=== PATIENT | male | born 1970 | race Two or more races ===

== ENCOUNTER 2022-11-20 06:55 | Outpatient (RCR) | payer OTHER, SELFPAY | END 2023-01-01 11:41 | disposition home or self-care (01) | LOC: PT 06:55 | PROVIDERS: PCP Internal Medicine; Visit Provider Anesthesiology Pain Medicine | DX: M47.816 Spondylosis without myelopathy or radiculopathy, lumbar region (principal) | CPT/HCPCS: 97012; 97110; 97112; 97113; 97140 ==

== ENCOUNTER 2023-02-19 15:51 | Outpatient (OUT) | payer OTHER, SELFPAY ==
--- NOTE | 2023-02-19 16:00 | XR_ITS ---
The [address] [address] Patient Name: HARPREET CORREA MRN: [id number] date: 1970 Sex: M Assigned Patient Location: [facility] Current Patient Location: Accession/Order Number: [id number] Exam Date: 02/19/2023 16:02 Report Date: 02/19/2023 22:10 At the request of: BERENICE CYR Procedure: XR lumbar spine 2-3V EXAM: XR thoracic spine 2V, XR lumbar spine 2-3V HISTORY: Lower thoracic back pain M54.6 COMPARISON: None. TECHNIQUE: 2 view thoracic spine and two-view lumbar spine FINDINGS: Thoracic: There are 12 rib-bearing thoracic vertebral bodies. Vertebral body heights and alignment are preserved. Minimal multilevel degenerative disc disease more notable at the lower thoracic levels. No fracture. Imaged lungs are clear. Lumbar: There are 5 nonrib-bearing lumbar-type vertebral bodies. Imaged sacroiliac joints appear intact. Vertebral body heights and alignment are preserved. Multilevel degenerative disc disease which is most notable at L5-S1. Facet arthrosis also most notable at L5-S1. XR/XR lumbar spine 2-3V IMPRESSION: Minimal multilevel degenerative disc disease of the thoracic spine. Multilevel degenerative changes of the lumbar spine most notable at L5-S1. Electronically authenticated by: EDILIA SCHNEIDER Date: 02/19/2023 22:10
--- NOTE | 2023-02-19 16:00 | XR_ITS ---
The [address] [address] Patient Name: HARPREET CORREA MRN: [id number] date: 1970 Sex: M Assigned Patient Location: [facility] Current Patient Location: Accession/Order Number: [id number] Exam Date: 02/19/2023 16:02 Report Date: 02/19/2023 22:10 At the request of: BERENICE CYR Procedure: XR thoracic spine 2V EXAM: XR thoracic spine 2V, XR lumbar spine 2-3V HISTORY: Lower thoracic back pain M54.6 COMPARISON: None. TECHNIQUE: 2 view thoracic spine and two-view lumbar spine FINDINGS: Thoracic: There are 12 rib-bearing thoracic vertebral bodies. Vertebral body heights and alignment are preserved. Minimal multilevel degenerative disc disease more notable at the lower thoracic levels. No fracture. Imaged lungs are clear. Lumbar: There are 5 nonrib-bearing lumbar-type vertebral bodies. Imaged sacroiliac joints appear intact. Vertebral body heights and alignment are preserved. Multilevel degenerative disc disease which is most notable at L5-S1. Facet arthrosis also most notable at L5-S1. XR/XR thoracic spine 2V IMPRESSION: Minimal multilevel degenerative disc disease of the thoracic spine. Multilevel degenerative changes of the lumbar spine most notable at L5-S1. Electronically authenticated by: EDILIA SCHNEIDER Date: 02/19/2023 22:10
== END 2023-02-19 15:52 | disposition home or self-care (01) ==
LOC: RAD 15:53
DX: M54.6 Pain in thoracic spine (principal); M54.16 Radiculopathy, lumbar region; M54.50 Low back pain, unspecified; M51.34 Other intervertebral disc degeneration, thoracic region
CPT/HCPCS: 72070; 72100

== ENCOUNTER 2023-02-25 09:16 | Outpatient (OUT) | payer OTHER, SELFPAY ==
--- NOTE | 2023-02-25 09:18 | US_ITS ---
The [address] [address] Patient Name: HARPREET CORREA MRN: [id number] date: 1970 Sex: M Assigned Patient Location: [place] Current Patient Location: Accession/Order Number: [id number] Exam Date: 02/25/2023 09:20 Report Date: 02/25/2023 09:46 At the request of: BERENICE KLARISSA Procedure: US renal BI EXAM: US renal BI HISTORY: Low Back Pain M54.50 COMPARISON: None. TECHNIQUE: Real-time ultrasound imaging of the kidneys and bladder. Findings: The right and left kidneys measure 10.6 and 11.3 cm. Good corticomedullary differentiation bilaterally. No renal stones or collecting system dilatation. No focal mass or perinephric fluid collection. Unremarkable bladder. Prevoid volume of 460 mL. US/US renal BI IMPRESSION: 1. Unremarkable sonographic appearance of the kidneys and bladder. Electronically authenticated by: MICHELLE ACEVEDO Date: 02/25/2023 09:46
== END 2023-02-25 09:17 | disposition home or self-care (01) ==
LOC: US 09:16
DX: M54.6 Pain in thoracic spine (principal); M54.16 Radiculopathy, lumbar region; M54.50 Low back pain, unspecified
CPT/HCPCS: 76775